=== PATIENT | female | born 1955 | race Caucasian/White ===

== ENCOUNTER 2023-03-18 12:46 | Emergency (ER) | payer MEDICARE, BC ==
[~2023-03-18] VITALS: Ht 162.6 cm; Wt 66.5 kg
[2023-03-18 15:13] VITALS: BP 80/57; PULSE 99; RESP 16; TEMP 98.5; O2SAT 90
== END 2023-03-18 20:30 | disposition left against medical advice (07) ==
LOC: ER 12:47
DX: R53.1 Weakness (principal); Z53.21 Procedure and treatment not carried out due to patient leaving prior to being seen by health care provider
CPT/HCPCS: 99281

== ENCOUNTER 2024-01-22 11:45 | Day surgery (SDC) | payer MEDICARE, BC ==
[~2024-01-22] VITALS: Ht 162.6 cm; Wt 65.7 kg
[2024-01-22] VITALS (8 sets, daily range): BP systolic 92–107; BP diastolic 54–87; PULSE 84–91; RESP 14–18; O2SAT 95–97
[2024-01-22] MEDS ORDERED: OSC500T PO (12:48)
[2024-01-22] MEDS ORDERED: ROSU20TA98 PO (12:48)
[2024-01-22] MEDS ORDERED: VITA1CAP PO (12:48)
[2024-01-22] MEDS ORDERED: PARO-154 PO (12:48)
[2024-01-22] MEDS ORDERED: CHOL10006 PO (12:48)
[2024-01-22] MEDS ORDERED: SPIR25TA5 PO (12:48)
[2024-01-22] MEDS ORDERED: MAGN500C4 PO (12:48)
[2024-01-22] MEDS ORDERED: SACU1TAB PO (12:48)
[2024-01-22] MEDS ORDERED: PREG150C47 PO (12:48)
[2024-01-22] MEDS ORDERED: AMIT100T76 PO (12:48)
[2024-01-22 13:16] LABS: EOSINOPHILS # (AUTO) 0.1 X10'3 (0-0.9); HEMOGLOBIN 11.8 g/dl (12.0-16.0); MEAN CORPUSCULAR HEMOGLOBIN 31.2 PG (27.0-31.0); MONOCYTES # (AUTO) 0.4 X10'3 (0-0.9); RED BLOOD COUNT 3.79 X10'6 (4.20-5.60)
[2024-01-22 13:18] LABS: BASOPHILS % (AUTO) 0.8 % (0-1); EOSINOPHILS % (AUTO) 1.3 % (0-6); LYMPHOCYTES # (AUTO) 1.4 X10'3 (1.1-4.8); LYMPHOCYTES % (AUTO) 28.4 % (21-51); MEAN CORPUSCULAR HGB CONC 32.9 g/dL (33.0-36.5); MEAN PLATELET VOLUME 12.2 FL (7.4-10.4); MONOCYTES % (AUTO) 7.5 % (2-12); PLATELET COUNT 89 X10'3 (140-440); RED CELL DISTRIBUTION WIDTH 16.1 % (11.5-14.5); WHITE BLOOD COUNT 4.8 X10'3 (4.5-11.0)
[2024-01-22 13:27] LABS: ALBUMIN 3.5 G/DL (3.4-5.0); ANION GAP 10 (8-16); BLOOD UREA NITROGEN 19 MG/DL (7-18); BUN/CREATININE RATIO 14.6 (10.0-20.0); CALCIUM 9.2 MG/DL (8.5-10.1); CHLORIDE 107 MMOL/L (99-107); GLUCOSE 86 MG/DL (70-104); POTASSIUM 4.2 MMOL/L (3.5-5.1); SODIUM 141 MMOL/L (135-145); TOTAL CARBON DIOXIDE 23.6 MMOL/L (24-32); eCRCL 35 ML/MIN; eGFR 40 ML/MIN
[2024-01-22 13:29] LABS: APTT 26 SECONDS (22-32); PROTHROMBIN TIME 10.4 SECONDS (9.0-12.0)
[2024-01-22] MEDS: LORazepam 0.5 MG tablet PO PRN (13:38)
[2024-01-22] MEDS: diphenhydrAMINE 25mg capsule PO PRN (13:38)
[2024-01-22] MEDS: normal saline 1,000 ML IV SCH (13:38)
[2024-01-22] MEDS ORDERED: verapamil 2.5 mg/ml inj IV ONE (15:00)
[2024-01-22] MEDS ORDERED: heparin 1,000unit/ml 10ml vial 10 ML ONE (15:00)
[2024-01-22] MEDS ORDERED: iohexol 350MG/ML 100ml bottle IV ONE (15:00)
[2024-01-22] MEDS ORDERED: nitroGLYCERIN 500mcg/5mL D5W 5 ML IV ONE (15:00)
[2024-01-22] MEDS ORDERED: LIDOcaine 1% (10mg/ml) 2ml vial ONE (15:00)
[2024-01-22] MEDS ORDERED: fentaNYL/PF 50MCG/1 ML 2ML syringe ONE (15:37)
[2024-01-22] MEDS ORDERED: midazolam 1 mg/ML 2ml injection ONE (15:37)
== END 2024-01-22 18:45 | disposition home or self-care (01) ==
LOC: SSTAY O 11:45
PROVIDERS: ATTEND Internal Medicine Interventional Cardiology
DX: I42.9 Cardiomyopathy, unspecified (principal); I11.0 Hypertensive heart disease with heart failure; I50.22 Chronic systolic (congestive) heart failure; I44.7 Left bundle-branch block, unspecified; E78.00 Pure hypercholesterolemia, unspecified; Z79.899 Other long term (current) drug therapy
CPT/HCPCS: 36415; 80048; 85025; 85610; 85730; 93005; 93458; A6258; A6402; C1769; C1894; J1644; J2003; J2250; J3010; J3490; J7030; Q0163; Q9967; Z7610; 99152; A6449